=== PATIENT | female | born 2000 | race Caucasian/White ===

== ENCOUNTER 2023-07-24 22:01 | Emergency (ER) | payer OTHER ==
[2023-07-24 22:05] VITALS: BP 129/73; PULSE 86; RESP 18; TEMP 98.5; BMI 22.1
[2023-07-24 23:28] LABS: BASO % 0.5 % (0-2.0); EOS % 1.6 % (0-4.5); HEMATOCRIT 34.8 % (32.4-45.2); HEMOGLOBIN 11.5 GM/dL (10.7-15.3); LYMPH % 39.4 % (8-40); MEAN CELL VOLUME 81.6 fl (80-96); MEAN PLT VOLUME 7.1 fl (7.5-11.1); MONO % 8.6 % (3.8-10.2); NEUT % 49.9 % (42.8-82.8); PLATELET COUNT 318 10^3/uL (134-434); RBC 4.27 M/mm3 (3.60-5.2); RDW 15.3 % (11.6-15.6); WHITE BLOOD COUNT 6.4 K/mm3 (4.0-10.0)
[2023-07-25 00:13] LABS: POTASSIUM 3.9 mmol/L (3.5-5.1)
[2023-07-25 00:15] LABS: CALCIUM 8.2 mg/dL (8.5-10.1)
[2023-07-25 00:16] LABS: ALBUMIN 3.4 g/dl (3.4-5.0); BLOOD UREA NITROGEN 10.1 mg/dL (7-18)
[2023-07-25 00:19] LABS: CREATININE 0.6 mg/dL (0.55-1.3)
[2023-07-25 00:20] LABS: BILIRUBIN,TOTAL 0.2 mg/dL (0.2-1); TOT PROT 6.8 g/dl (6.4-8.2)
== END 2023-07-25 01:35 | disposition home or self-care (01) ==
LOC: JER 22:01
DX: R07.89 Other chest pain (principal); R06.02 Shortness of breath; R00.2 Palpitations
CPT/HCPCS: 36415; 71046-TC-FY; 80053; 84484; 85025; 93005; 93010; 99285-25